=== PATIENT | female | born 1990 ===

== ENCOUNTER 2017-04-02 12:15 | Emergency (ER) | payer OTHER ==
[2017-04-02 12:16] VITALS: BMI 25.4
[2017-04-02] MEDS ORDERED: Sodium Chloride 0.9% 1,000 ML IV ONE (13:10)
[2017-04-02 13:19] LABS: RBC URINE 2 /hpf (0-3); URINE BACTERIA RARE (<OCC); URINE BILIRUBIN NEGATIVE (NEGATIVE); URINE BLOOD NEGATIVE (NEGATIVE); URINE COLOR Yellow (YELLOW); URINE GLUCOSE (UA) NORMAL (Normal); URINE KETONE NEGATIVE (NEGATIVE); URINE LEUKOCYTE ESTERASE 2+ Leu/uL (Negative); URINE PROTEIN NEGATIVE (NEGATIVE); WBC URINE 6 /hpf (0-5)
[2017-04-02] MEDS ORDERED: Sodium Chloride 0.9% 1,000 ML ONE (13:21)
[2017-04-02 13:25] LABS: BASO # 0.1 K/uL (0.0-0.2); BASO % 1.1 % (0.0-2.0); EOS # 0.2 K/uL (0.0-0.7); EOS % 2.5 % (0.0-4.0); HEMATOCRIT 40.7 % (34.0-47.0); LYMPH # 2.6 K/uL (1.0-4.3); MEAN CELL VOLUME 90.8 fL (81.0-99.0); MEAN CORPUSCULAR HEMOGLOBIN 30.5 pg (27.0-31.0); MEAN CORPUSCULAR HGB CONC 33.6 g/dL (33.0-37.0); MEAN PLATELET VOLUME 9.4 fL (7.2-11.7); MONO # 0.5 K/uL (0.0-0.8); MONO % 6.1 % (0.0-10.0); RED CELL DISTRIBUTION WIDTH 12.6 % (11.5-14.5); WHITE BLOOD COUNT 8.9 K/uL (4.8-10.8)
[2017-04-02 13:31] LABS: CHLORIDE 98 mmol/L (98-107)
[2017-04-02 13:32] LABS: POTASSIUM 3.6 mmol/L (3.6-5.2); SODIUM 133 mmol/L (132-148)
[2017-04-02 13:34] LABS: GFR AFRICAN-AMERICAN > 60
[2017-04-02 13:35] LABS: ALB/GLOB RATIO 1.3 (1.0-2.1); ALKALINE PHOSPHATASE 44 U/L (38-126); ALT/SGPT 35 U/L (9-52); AST/SGOT 20 U/L (14-36); BILIRUBIN,TOTAL 0.8 mg/dL (0.2-1.3); BLOOD UREA NITROGEN 10 mg/dL (7-17); CALCIUM 8.7 mg/dl (8.6-10.4); CARBON DIOXIDE 26 mmol/L (22-30); GLUCOSE,RANDOM 80 mg/dL (65-105); TOTAL PROTEIN 7.5 g/dL (6.3-8.3)
--- NOTE | 2017-04-02 13:56 | C.PDOC ---
History Of Present Illness 26-year-old female, presents to the emergency department with complaints of abdominal pain. Patient states she has been experiencing periumbilical abdominal pain that started this morning. Pain is associated with nausea, intermittent in nature, and radiates to left-lower quadrant. Patient denies vomiting, fevers, chills, back pain, dizziness, symptoms, or any other associated symptoms. No other complaints at this time. Time Seen by Provider: 04/02/17 12:41 Chief Complaint (Nursing): Abdominal Pain History Per: Patient History/Exam Limitations: no limitations Onset/Duration Of Symptoms: Hrs Current Symptoms Are (Timing): Still Present Severity: Moderate Location Of Pain/Discomfort: LLQ, Suprapubic Associated Symptoms: Nausea Past Medical History Reviewed: Historical Data, Nursing Documentation, Vital Signs Vital Signs: Last Vital Signs Temp 98.6 F 04/02/17 13:58 Pulse 72 04/02/17 13:58 Resp 16 04/02/17 13:58 BP 102/68 04/02/17 13:58 Pulse Ox 100 04/02/17 15:13 - Medical History PMH: Anxiety, Depression, Sexually Transmitted Disease (oral herpes) Denies: Diabetes, Hepatitis, HIV, HTN, Chronic Kidney Disease, Seizures - [facility] Procedures INJECT/INFUSE ELECTROLYT (05/18/15) INJECT/INFUSE NEC (08/11/15) Family History: States: Unknown Family Hx - Social History Hx Alcohol Use: Yes Hx Substance Use: No - Immunization History Hx Tetanus Toxoid Vaccination: No Hx Influenza Vaccination: No Hx Pneumococcal Vaccination: No Review Of Systems Except As Marked, All Systems Reviewed And Found Negative. Constitutional: Negative for: Fever Cardiovascular: Negative for: Chest Pain Gastrointestinal: Positive for: Nausea, Abdominal Pain. Negative for: Vomiting , Diarrhea Genitourinary: Negative for: Vaginal Discharge, Vaginal Bleeding Musculoskeletal: Negative for: Back Pain Physical Exam - Physical Exam Appears: Non-toxic, No Acute Distress Skin: Warm, Dry, No Rash Head: Atraumatic, Normacephalic Eye(s): bilateral: Normal Inspection, PERRL Nose: Normal Oral Mucosa: Moist Lips: Normal Appearing Neck: Normal ROM Chest: Symmetrical Cardiovascular: Rhythm Regular Respiratory: Normal Breath Sounds, No Accessory Muscle Use Gastrointestinal/Abdominal: Soft, Tenderness (LLQ tenderness), No Distention, No Guarding, No Rebound Back: No CVA Tenderness Pelvic: Vaginal Discharge (mild, white), No Cervical Motion Tenderness Extremity: Normal ROM Neurological/Psych: Oriented x3, Normal Speech ED Course And Treatment - Laboratory Results Result Diagrams: 04/02/17 13:19 04/02/17 13:19 O2 Sat by Pulse Oximetry: 100 Medical Decision Making Medical Decision Making: Plan: * CMP, Lipase * CBC * IVF, Toradol, Zofran * Urinalysis/Urine Preg * Reassess and Disposition Progress: Patient is resting comfortably, abdomen remains soft, and patient is tolerating PO. Labs are WNL. Patient feels comfortable going home. She will be discharged for outpatient follow-up with PMD, asked to return if symptoms persist or worsen. All questions answered. Disposition Counseled Patient/Family Regarding: Diagnosis, Need For Followup, Rx Given - Disposition Referrals: [facility] [Outside] Disposition: HOME/ ROUTINE Disposition Time: 15:36 Condition: STABLE Additional Instructions: Take meds as directed Return to ER if fever, vomiting, or worse Instructions: Urinary Tract Infection in Women (ED) - Clinical Impression Clinical Impression: Urinary tract infection - Scribe Statement The provider has reviewed the documentation as recorded by the Scribyves Oropeza All medical record entries made by the Scribe were at my direction and personally dictated by me. I have reviewed the chart and agree that the record accurately reflects my personal performance of the history, physical exam, medical decision making, and the department course for this patient. I have also personally directed, reviewed, and agree with the discharge instructions and disposition.
[2017-04-02 13:59] VITALS: RESP 16; TEMP 98.6
[2017-04-02 15:49] VITALS: BP 110/60; PULSE 68; O2SAT 98
== END 2017-04-02 15:56 | disposition home or self-care (01) ==
LOC: C.ER 12:15
DX: N39.0 Urinary tract infection, site not specified (principal)
CPT/HCPCS: 80053; 81001; 83690; 84703; 85025; 96374; 96375; 99285; J1885; J2405; J7040

== ENCOUNTER 2017-04-05 06:10 | Inpatient (IN) | payer OTHER ==
[2017-04-05] MEDS ORDERED: Sodium Chloride 0.9% 1,000 ML IV ONE (06:25)
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
[2017-04-05 06:28] VITALS: BMI 26.2
[2017-04-05 06:43] LABS: BASO # 0.1 K/uL (0.0-0.2); BASO % 1.3 % (0.0-2.0); EOS # 0.2 K/uL (0.0-0.7); EOS % 3.5 % (0.0-4.0); LYMPH # 1.5 K/uL (1.0-4.3); LYMPH % 24.2 % (20.0-40.0); MEAN CELL VOLUME 90.2 fL (81.0-99.0); MEAN CORPUSCULAR HEMOGLOBIN 30.7 pg (27.0-31.0); MEAN PLATELET VOLUME 9.4 fL (7.2-11.7); MONO # 0.3 K/uL (0.0-0.8); MONO % 4.6 % (0.0-10.0); NRBC % 0.1 % (0.0-2.0); RED CELL DISTRIBUTION WIDTH 12.8 % (11.5-14.5); WHITE BLOOD COUNT 6.2 K/uL (4.8-10.8)
[2017-04-05 07:01] LABS: CHLORIDE 102 mmol/L (98-107)
[2017-04-05 07:02] LABS: POTASSIUM 3.8 mmol/L (3.6-5.2); SODIUM 136 mmol/L (132-148)
[2017-04-05 07:04] LABS: ALB/GLOB RATIO 1.4 (1.0-2.1); ALKALINE PHOSPHATASE 43 U/L (38-126); AST/SGOT 19 U/L (14-36); BILIRUBIN,TOTAL 1.3 mg/dL (0.2-1.3); CARBON DIOXIDE 22 mmol/L (22-30); GFR AFRICAN-AMERICAN > 60
[2017-04-05 07:05] LABS: ALCOHOL SERUM < 10 mg/dl (0-10); ALT/SGPT 33 U/L (9-52); BLOOD UREA NITROGEN 8 mg/dL (7-17); CALCIUM 8.3 mg/dl (8.6-10.4); GLUCOSE,RANDOM 92 mg/dL (65-105)
--- NOTE | 2017-04-05 08:30 | RAD ---
PROCEDURE: CHEST RADIOGRAPH, 1 VIEW HISTORY: Overdosed COMPARISON: 03/07/2016 FINDINGS: LUNGS: Clear. PLEURA: No pneumothorax or pleural fluid seen. CARDIOVASCULAR: Normal. OSSEOUS STRUCTURES: No significant abnormalities. VISUALIZED UPPER ABDOMEN: Normal. OTHER FINDINGS: None. IMPRESSION: No active disease.
[2017-04-05 08:51] LABS: RBC URINE 8 /hpf (0-3); URINE BACTERIA RARE (<OCC); URINE BILIRUBIN NEGATIVE (NEGATIVE); URINE BLOOD NEGATIVE (NEGATIVE); URINE COLOR Yellow (YELLOW); URINE GLUCOSE (UA) NORMAL (Normal); URINE KETONE TRACE mg/dL (NEGATIVE); URINE LEUKOCYTE ESTERASE 3+ Leu/uL (Negative); URINE PROTEIN NEGATIVE (NEGATIVE); URINE UROBILINOGEN NORMAL mg/dL (0.2-1.0); WBC URINE 22 /hpf (0-5)
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
--- NOTE | 2017-04-06 15:06 | CARD ---
APPROVED REPORT EKG Measurement Heart [id number] <Conclusion> Sinus bradycardia with sinus arrhythmia Otherwise normal ECG
[2017-04-06] MEDS ORDERED: Multiple Vitamins Tab ONE (17:07)
--- NOTE | 2017-04-06 22:29 | PCM.PYCHPN ---
Psychiatric Progress Note - Psychiatric Progress Note Patient seen today, length of contact: 24 min Patient Chief Complaint: "I don't feel well" Problems Identified/Issues Discussed: She is seen, chart reviewed and case discussed. She is tearful at times, very anxious and sad but denies any suicide plan. We held a meeting with her boyfriend. He is older than him, AA, has 2 children and a GF but calls her "fiance" which "shocked" the patient as she was under the impression that it was an old girlfriend he was still in touch. He plainly said that he was NOT decided who to go with as the pt "scared" him many times. It turns out that the pt gets dissociative episodes and goes into the personality of a 17 year-old woman and acts like that "for hours and one time the whole day." She even went to work like that one day. She also has "anger outbursts" and mood swings. 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 On the positive side, they both agreed to work through couples counseling while she is also receiving indiv tx and med management. [facility] or someone from her insurance will be contacted by the [facility] Medication Change: Yes (lexapro started) Medical Record Reviewed: Yes Mental Status Examination - Cognitive Function Orientation: Person, Place, Situation, Time Memory: Intact Attention: Poor Concentration: Poor Association: WNL Fund of Knowledge: WNL - Mood Mood: Depressed, Anxious - Affect Affect: Constricted - Speech Speech: Appropriate - Formal Thought Process Formal Thought Process: No Impairment - Suicidal Ideation Suicidal Ideation: Yes Plan: SI comes and goes but no plans - Homicidal Ideation Homicidal Ideation: No Goal/Treatment Plan - Goal/Treatment Plan Need for Continued Stay: Discharge may exacerbated symptoms, Severe functional impairment Progress Toward Problem(s) and Goals/Treatment Plan: lexapro 5 mg will slowly increase to 20 mg Psychoed given prn meds Close observation Support and CBT EKG ordered for medical clearance Estimated Date of D/C: 04/10/17
[2017-04-07] MEDS: Multiple Vitamins Tab PO SCH (10:28)
--- NOTE | 2017-04-07 15:15 | PCM.PYCHPN ---
Psychiatric Progress Note - Psychiatric Progress Note Patient seen today, length of contact: 15 min Patient Chief Complaint: "A little better" Problems Identified/Issues Discussed: Seen with team, chart reviewed and case discussed. She is still sad and worried. Spoke to again. He is not yet decided on which woman he will stay with. She is happy that he is now at least more open but worried about losing him. Her multiple personality symptoms scared him but she says she was "working on that." No side-effects from Lexapro 5 mg so far, dose is increased to 10 mg. Not acutely suicidal now but has ongoing risk due to ongoing stress and recent significant attempt (many pills and suicide letter) If she keeps improving she will be discharged this Monday, as she wants to start job this Monday. Support given Medication Change: Yes (increase lexapro to 10 mg) Medical Record Reviewed: Yes Mental Status Examination - Cognitive Function Orientation: Person, Place, Situation, Time Memory: Intact Attention: Poor Concentration: Poor Association: WNL Fund of Knowledge: WNL - Mood Mood: Depressed, Anxious - Affect Affect: Constricted - Speech Speech: Appropriate - Formal Thought Process Formal Thought Process: No Impairment - Suicidal Ideation Suicidal Ideation: No - Homicidal Ideation Homicidal Ideation: No Goal/Treatment Plan - Goal/Treatment Plan Need for Continued Stay: Discharge may exacerbated symptoms, Severe functional impairment Progress Toward Problem(s) and Goals/Treatment Plan: lexapro 10 mg prn meds Close observation Support and CBT daily After care: [facility] for couples counseling and indiv therapy (and meds) Estimated Date of D/C: 04/09/17
[2017-04-08 08:05] VITALS: O2SAT 99
[2017-04-08] MEDS: Multiple Vitamins Tab PO SCH (09:27)
[2017-04-09 08:10] VITALS: BP 116/73; PULSE 86; RESP 20; TEMP 98.2
[2017-04-09] MEDS: Multiple Vitamins Tab PO SCH (09:11)
--- NOTE | 2017-04-11 23:09 | PCM.PYCHPN ---
Psychiatric Progress Note - Psychiatric Progress Note Patient seen today, length of contact: 16 min Patient Chief Complaint: the arguements with my family were getting to me. Problems Identified/Issues Discussed: symptom manage adherence to meds and treatment for depression Medical Problems: nothing acute Diagnostic Results: reviewed DSM 5 Symptoms Update: insomnika difficulty concentrating Medication Change: No Medical Record Reviewed: Yes Mental Status Examination - Cognitive Function Orientation: Person, Place, Situation, Time Memory: Intact Attention: WNL Concentration: Poor Association: WNL Fund of Knowledge: WNL - Mood Mood: Depressed, Anxious - Affect Affect: Constricted - Speech Speech: Appropriate - Formal Thought Process Formal Thought Process: No Impairment - Suicidal Ideation Suicidal Ideation: No - Homicidal Ideation Homicidal Ideation: No Goal/Treatment Plan - Goal/Treatment Plan Need for Continued Stay: Remain at risks for inpatient hospitalization, Discharge may exacerbated symptoms, Severe functional impairment Progress Toward Problem(s) and Goals/Treatment Plan: pt is attending groups, attending to adls no longer suicidal Estimated Date of D/C: 04/10/17 - Smoking Cessation Smoking Cessation Initiated: No
--- NOTE | 2017-04-11 23:16 | PCM.PYCHPN ---
Psychiatric Progress Note - Psychiatric Progress Note Patient seen today, length of contact: 16 min Patient Chief Complaint: i want to be discharged today Problems Identified/Issues Discussed: after care if leaves without having made appointments pt states she can call crc herself to make an appoint ment Medical Problems: nothing acute Diagnostic Results: reviewed DSM 5 Symptoms Update: still some trouble sleeping and staying asleep Medication Change: No Medical Record Reviewed: Yes Mental Status Examination - Cognitive Function Orientation: Person, Situation, Time Memory: Intact Concentration: WNL Association: WNL Fund of Knowledge: WNL - Mood Mood: Neutral - Affect Affect: Constricted - Speech Speech: Appropriate - Formal Thought Process Formal Thought Process: No Impairment - Suicidal Ideation Suicidal Ideation: No - Homicidal Ideation Homicidal Ideation: No Goal/Treatment Plan - Goal/Treatment Plan Progress Toward Problem(s) and Goals/Treatment Plan: looking towards future wants to go back to work at [employer] Estimated Date of D/C: 04/10/17 - Smoking Cessation Smoking Cessation Initiated: No
--- NOTE | 2017-04-12 13:15 | CARD ---
APPROVED REPORT EKG Measurement Heart [id number] <Conclusion> Normal sinus rhythm with sinus arrhythmia Normal ECG
== END 2017-04-09 14:50 | disposition home or self-care (01) | DRG 885 ==
LOC: SUPCPDRO 06:10 → C.ER 06:10 → C.5E 09:41
PROVIDERS: ADMIT Psychiatry & Neurology Psychiatry; ATTEND Psychiatry & Neurology Psychiatry
PROC: GZ3ZZZZ Medication Management (ICD-10-PCS; principal; 2017-04-05)
PROC: GZ56ZZZ Individual Psychotherapy, Supportive (ICD-10-PCS; 2017-04-05)
DX: F32.2 Major depressive disorder, single episode, severe without psychotic features (principal); T43.212A Poisoning by selective serotonin and norepinephrine reuptake inhibitors, intentional self-harm, initial encounter; F44.81 Dissociative identity disorder; F60.3 Borderline personality disorder; F43.10 Post-traumatic stress disorder, unspecified; Y92.009 Unspecified place in unspecified non-institutional (private) residence as the place of occurrence of the external cause

== ENCOUNTER 2017-10-17 13:28 | Emergency (ER) | payer OTHER ==
[2017-10-17 13:28] VITALS: BMI 26.2
[2017-10-17 13:52] VITALS: RESP 18
--- NOTE | 2017-10-17 14:23 | RAD ---
HISTORY: COMPARISON: 04/05/2017. TECHNIQUE: Chest PA and lateral FINDINGS: LINES AND TUBES: None. LUNG AND PLEURA: There is mild pulmonary hyperinflation and peribronchial cuffing with streaky opacities in the lungs. No focal consolidation. HEART AND MEDIASTINUM: The heart is not enlarged. The hilar and mediastinal contours are within normal limits. SKELETAL STRUCTURES: The bony structures are within normal limits for the patient's age. VISUALIZED UPPER ABDOMEN: Normal. OTHER FINDINGS: None. IMPRESSION: Findings are most compatible with reactive small airway disease/viral bronchitis/atypical pneumonitis. No lobar pneumonia.
--- NOTE | 2017-10-17 14:31 | C.PDOC ---
History Of Present Illness 27 yr old female presents to the ER with complaints of sore throat and cough for the past 3 days. Patient denies history of asthma, smoking, fever, chest pain, SOB, DENTON, nausea, vomiting, weakness or numbness. SORE THROAT, COUGH X 3 DAYS. NO FEVER HO ASTHMA, SMOKING. NO SOB, DENTON, CP EXAM MILD DIST NONTOXIC HEENT +ERYTHEMA PHARYNGEAL NO LESIONS, EXUDATE. NO SWELL, UVULA MIDLINE LUNGS CTA B/L OCC RHONCHI CENTRAL SPEAKING FULL SENTENCES REMAINDER NEG Time Seen by Provider: 10/17/17 13:57 Chief Complaint (Nursing): Flu-like Symptoms History Per: Patient History/Exam Limitations: no limitations Onset/Duration Of Symptoms: Days (3) Current Symptoms Are (Timing): Still Present Sick Contacts (Context): None Past Medical History Reviewed: Historical Data, Nursing Documentation, Vital Signs Vital Signs: Last Vital Signs Temp 98.7 F 10/17/17 13:49 Pulse 75 10/17/17 13:49 Resp 18 10/17/17 13:49 BP 120/81 10/17/17 13:49 Pulse Ox 98 10/17/17 14:33 - Medical History PMH: Anxiety, Depression, Sexually Transmitted Disease (oral herpes) - [facility] Procedures INDIVIDUAL PSYCHOTHERAPY, SUPPORTIVE (04/05/17) INJECT/INFUSE ELECTROLYT (05/18/15) INJECT/INFUSE NEC (08/11/15) MEDICATION MANAGEMENT (04/05/17) Family History: States: No Known Family Hx - Social History Hx Alcohol Use: No Hx Substance Use: No - Immunization History Hx Tetanus Toxoid Vaccination: No Hx Influenza Vaccination: No Hx Pneumococcal Vaccination: No Review Of Systems Except As Marked, All Systems Reviewed And Found Negative. Constitutional: Negative for: Fever ENT: Positive for: Throat Pain (Sore throat) Cardiovascular: Negative for: Chest Pain Respiratory: Positive for: Cough. Negative for: Shortness of Breath Gastrointestinal: Negative for: Nausea, Vomiting Neurological: Negative for: Weakness, Numbness Physical Exam - Physical Exam Appears: Non-toxic, In Acute Distress (Mild) Skin: Warm, Dry, No Rash Head: Atraumatic, Normacephalic Ear(s): Bilateral: Normal Oral Mucosa: Moist Throat: Erythema (Pharyngeal), No Exudate, Other (No lesions. No swelling. Uvula midline.) Neck: Normal, Normal ROM, Supple Respiratory: No Rales, Rhonchi (Occasional central rhonchi), No Stridor Extremity: Normal ROM, No Swelling Neurological/Psych: Oriented x3, Normal Speech, Normal Motor ED Course And Treatment O2 Sat by Pulse Oximetry: 98 (RA) Pulse Ox Interpretation: Normal - Radiology CXR: Interpreted by Me, Viewed By Me CXR Interpretation: Yes: No Acute Disease Medical Decision Making Medical Decision Making: PLAN: * CXR Disposition Counseled Patient/Family Regarding: Studies Performed, Diagnosis, Need For Followup, Rx Given - Disposition Referrals: [facility] [Outside] [facility] [Outside] Disposition: HOME/ ROUTINE Disposition Time: 14:31 Condition: GOOD Prescriptions: Azithromycin 250 mg PO DAILY #6 tab Benzonatate [Tessalon Perles] 200 mg PO TID PRN #15 sgl PRN Reason: Cough Instructions: Acute Bronchitis (ED) Forms: [facility] (Kittitian), Work Excuse - Clinical Impression Clinical Impression: Bronchitis - Scribe Statement The provider has reviewed the documentation as recorded by the Rocioibe Samira Leggett Provider Attestation: All medical record entries made by the Scribe were at my direction and personally dictated by me. I have reviewed the chart and agree that the record accurately reflects my personal performance of the history, physical exam, medical decision making, and the department course for this patient. I have also personally directed, reviewed, and agree with the discharge instructions and disposition.
[2017-10-17 15:00] VITALS: BP 124/72; PULSE 72; TEMP 98.2; O2SAT 99
== END 2017-10-17 15:11 | disposition home or self-care (01) ==
LOC: C.ER 13:28
DX: J40 Bronchitis, not specified as acute or chronic (principal)

== ENCOUNTER 2018-02-26 16:54 | Emergency (ER) | payer OTHER ==
[2018-02-26 16:54] VITALS: BMI 26.2
[2018-02-26 18:00] VITALS: BP 123/81; PULSE 75; RESP 18; TEMP 98.1; O2SAT 100
[2018-02-26 18:50] LABS: SQUAMOUS EPITHIAL 3 /hpf (0-5); URINE BACTERIA FEW (<OCC); URINE BILIRUBIN NEGATIVE (NEGATIVE); URINE CLARITY Hazy (Clear); URINE COLOR Amber (YELLOW); URINE GLUCOSE (UA) NORMAL (Normal); URINE PROTEIN 1+ mg/dL (NEGATIVE)
[2018-02-26 18:51] LABS: URINE BLOOD TRACE (NEGATIVE); URINE LEUKOCYTE ESTERASE 1+ Leu/uL (Negative)
--- NOTE | 2018-02-26 19:05 | C.PDOC ---
History Of Present Illness 27 year old female presents to the ED c/o suprapubic pain associated with dysuria, urinary frequency that started yesterday at 03:00. Patient reports she took 1 leftover tablet of antibiotics she had. Patient denies fever, chills, nausea, vomit, diarrhea, vaginal bleeding, vaginal d/c. Time Seen by Provider: 02/26/18 18:22 Chief Complaint (Nursing): Female Genitourinary History Per: Patient History/Exam Limitations: no limitations Onset/Duration Of Symptoms: Days Current Symptoms Are (Timing): Still Present Quality Of Discomfort: Burning Associated Symptoms: Urinary Symptoms Recent travel outside of the [place]: No Additional History Per: Patient Abnormal Vaginal Bleeding: No Past Medical History Reviewed: Historical Data, Nursing Documentation, Vital Signs Vital Signs: Last Vital Signs Temp 98.1 F 02/26/18 17:57 Pulse 75 02/26/18 17:57 Resp 18 02/26/18 17:57 BP 123/81 02/26/18 17:57 Pulse Ox 100 02/26/18 19:12 - Medical History PMH: Anxiety, Depression, Sexually Transmitted Disease (oral herpes) Denies: Diabetes, Hepatitis, HIV, HTN, Chronic Kidney Disease, Seizures Surgical History: No Surg Hx - [facility] Procedures INDIVIDUAL PSYCHOTHERAPY, SUPPORTIVE (04/05/17) INJECT/INFUSE ELECTROLYT (05/18/15) INJECT/INFUSE NEC (08/11/15) MEDICATION MANAGEMENT (04/05/17) Family History: States: Unknown Family Hx - Social History Hx Alcohol Use: Yes Hx Substance Use: No - Immunization History Hx Tetanus Toxoid Vaccination: No Hx Influenza Vaccination: No Hx Pneumococcal Vaccination: No Review Of Systems Constitutional: Negative for: Fever, Chills Cardiovascular: Negative for: Chest Pain Respiratory: Negative for: Shortness of Breath Gastrointestinal: Positive for: Abdominal Pain Genitourinary: Positive for: Dysuria, Frequency. Negative for: Vaginal Discharge, Vaginal Bleeding Musculoskeletal: Negative for: Back Pain Skin: Negative for: Rash Physical Exam - Physical Exam Appears: Non-toxic, No Acute Distress Skin: Normal Color, Warm, Dry Head: Atraumatic, Normacephalic Eye(s): bilateral: Normal Inspection ED Course And Treatment O2 Sat by Pulse Oximetry: 100 Disposition - Disposition Referrals: [facility] [Outside] Disposition: HOME/ ROUTINE Disposition Time: 19:11 Condition: GOOD Additional Instructions: Drink increased fluids. Take antibiotics until completed. Tylenol or Motrin for pain. Follow up in medical clinic and with traffic controller cable for annual exam and pap smear. Prescriptions: Ciprofloxacin [Cipro] 500 mg PO BID #10 tab Instructions: Urinary Tract Infection, Adult (DC) Forms: [facility] (Tajik), General Discharge Instructions - Clinical Impression Clinical Impression: Urinary tract infection
== END 2018-02-26 19:24 | disposition home or self-care (01) ==
LOC: C.ER 16:54
DX: N39.0 Urinary tract infection, site not specified (principal)

== ENCOUNTER 2018-03-21 08:47 | Emergency (ER) | payer BC, OTHER ==
[2018-03-21 08:47] VITALS: BMI 26.2
[2018-03-21 08:53] VITALS: RESP 18
--- NOTE | 2018-03-21 09:39 | C.PDOC ---
History Of Present Illness 27 y/o female presents to the ED for evaluation following near syncopal episode. Patient states she stood up quickly from her bed and felt near syncopal. There was no LOC. She reports history of similar episodes in the past with no identified cause for syncopal episodes. Patient also believes she twisted her left ankle in the process. Otherwise she denies any head trauma, numbness, weakness, or other injury. She has no dizziness at present. Time Seen by Provider: 03/21/18 09:35 Chief Complaint (Nursing): Syncope History Per: Patient History/Exam Limitations: no limitations Onset/Duration Of Symptoms: Mins Current Symptoms Are (Timing): Gone Past Medical History Reviewed: Historical Data, Nursing Documentation, Vital Signs Vital Signs: Last Vital Signs Temp 98.6 F 03/21/18 10:01 Pulse 58 L 03/21/18 10:01 Resp 18 03/21/18 10:01 BP 116/77 03/21/18 10:01 Pulse Ox 97 03/21/18 11:38 - Medical History PMH: Anxiety, Depression, Sexually Transmitted Disease (oral herpes) Denies: Diabetes, Hepatitis, HIV, HTN, Chronic Kidney Disease, Seizures - [facility] Procedures INDIVIDUAL PSYCHOTHERAPY, SUPPORTIVE (04/05/17) INJECT/INFUSE ELECTROLYT (05/18/15) INJECT/INFUSE NEC (08/11/15) MEDICATION MANAGEMENT (04/05/17) Family History: States: Unknown Family Hx - Social History Hx Alcohol Use: Yes Hx Substance Use: No - Immunization History Hx Tetanus Toxoid Vaccination: No Hx Influenza Vaccination: No Hx Pneumococcal Vaccination: No Review Of Systems Except As Marked, All Systems Reviewed And Found Negative. Eyes: Negative for: Vision Change Musculoskeletal: Positive for: Foot Pain (left ankle pain). Negative for: Neck Pain, Back Pain Skin: Negative for: Lesions Neurological: Positive for: Other (near syncopal episode, now resolved). Negative for: Weakness, Numbness, Confusion, Headache, Dizziness Physical Exam - Physical Exam Appears: Non-toxic, No Acute Distress Skin: Normal Color, Warm, Dry Head: Atraumatic, Normacephalic Eye(s): bilateral: Normal Inspection, PERRL, EOMI Nose: Normal Oral Mucosa: Moist Neck: Normal ROM, Supple Chest: Symmetrical Cardiovascular: Rhythm Regular, No Murmur Respiratory: Normal Breath Sounds, No Accessory Muscle Use Gastrointestinal/Abdominal: Soft, No Tenderness, No Distention Extremity: Bilateral: Atraumatic (with no swelling or tenderness to left ankle) , Normal Color And Temperature, Normal ROM Neurological/Psych: Oriented x3, Normal Speech, Normal Cranial Nerves, Normal Motor, Normal Sensation, No Other (focal deficits) Gait: Steady ED Course And Treatment O2 Sat by Pulse Oximetry: 97 Medical Decision Making Medical Decision Making: Impression: brief vasovagal syncope, mild L ankld sprain no acute injuries wants to go to work today Stable for d/c home Disposition Doctor Will See Patient In The: Office Counseled Patient/Family Regarding: Studies Performed, Diagnosis - Disposition Referrals: [facility] [Outside] [facility] [Outside] Disposition: HOME/ ROUTINE Disposition Time: 09:39 Condition: GOOD Additional Instructions: ice packs to the ankle motrin as needed follow-up in our outpatient Clinic as needed. Instructions: Syncope (Fainting), Ankle Sprain Forms: [facility] (Syriac), Work Excuse - POA Present On Arrival: None - Clinical Impression Clinical Impression: Near syncope, Ankle sprain - Scribe Statement The provider has reviewed the documentation as recorded by the Scribe (Shayna Schmidt) Provider Attestation: All medical record entries made by the Scribe were at my direction and personally dictated by me. I have reviewed the chart and agree that the record accurately reflects my personal performance of the history, physical exam, medical decision making, and the department course for this patient. I have also personally directed, reviewed, and agree with the discharge instructions and disposition.
[2018-03-21 10:04] VITALS: BP 116/77; PULSE 58; TEMP 98.6
[2018-03-21 11:36] VITALS: O2SAT 97
== END 2018-03-21 10:06 | disposition home or self-care (01) ==
LOC: C.ER 08:47
DX: R55 Syncope and collapse (principal); S93.402A Sprain of unspecified ligament of left ankle, initial encounter; X50.1XXA Overexertion from prolonged static or awkward postures, initial encounter; Y92.003 Bedroom of unspecified non-institutional (private) residence as the place of occurrence of the external cause

== ENCOUNTER 2018-04-03 17:50 | Emergency (ER) | payer OTHER ==
[2018-04-03 17:51] VITALS: BMI 26.2
[2018-04-03 18:11] VITALS: TEMP 98.5
[2018-04-03] MEDS ORDERED: Sodium Chloride 0.9% 1,000 ML IV ONE (18:22)
[2018-04-03] MEDS ORDERED: Sodium Chloride 0.9% 1,000 ML ONE (18:33)
[2018-04-03 18:41] LABS: BASO # 0.1 K/uL (0.0-0.2); BASO % 1.1 % (0.0-2.0); EOS # 0.3 K/uL (0.0-0.7); EOS % 2.6 % (0.0-4.0); HEMOGLOBIN 13.4 g/dL (11.0-16.0); LYMPH # 2.6 K/uL (1.0-4.3); LYMPH % 26.6 % (20.0-40.0); MEAN CELL VOLUME 89.8 fL (81.0-99.0); MEAN CORPUSCULAR HEMOGLOBIN 31.2 pg (27.0-31.0); MEAN CORPUSCULAR HGB CONC 34.7 g/dL (33.0-37.0); MEAN PLATELET VOLUME 8.6 fL (7.2-11.7); MONO # 0.5 K/uL (0.0-0.8); MONO % 5.2 % (0.0-10.0); NEUT # 6.4 K/uL (1.8-7.0); NEUT % 64.5 % (50.0-75.0); NRBC % 0.1 % (0.0-2.0); RBC 4.31 Mil/uL (3.80-5.20); RED CELL DISTRIBUTION WIDTH 12.9 % (11.5-14.5); WHITE BLOOD COUNT 9.9 K/uL (4.8-10.8)
[2018-04-03 18:43] LABS: HCG,QUALITATIVE URINE NEGATIVE (NEGATIVE)
[2018-04-03 18:46] LABS: SQUAMOUS EPITHIAL 3 /hpf (0-5); URINE BILIRUBIN NEGATIVE (NEGATIVE); URINE BLOOD NEGATIVE (NEGATIVE); URINE CLARITY Clear (Clear); URINE COLOR Yellow (YELLOW); URINE GLUCOSE (UA) NORMAL (Normal); URINE LEUKOCYTE ESTERASE NEG Leu/uL (Negative); URINE PROTEIN NEGATIVE (NEGATIVE); URINE UROBILINOGEN NORMAL mg/dL (0.2-1.0)
[2018-04-03 18:53] LABS: ALB/GLOB RATIO 1.2 (1.0-2.1); ALBUMIN 4.1 g/dL (3.5-5.0); ALT/SGPT 31 U/L (9-52); AST/SGOT 23 U/L (14-36); BLOOD UREA NITROGEN 11 mg/dL (7-17); GFR AFRICAN-AMERICAN > 60; GFR NON-AFRICAN AMERICAN > 60; LIPASE 43 U/L (23-300)
--- NOTE | 2018-04-03 18:57 | C.PDOC ---
History Of Present Illness 27yo female, no past medical history, presents to ER stating for the past 2 months, she has been feeling more tired than usual, is lacking energy and has had occasional epigastric abdominal pain. She denies any change in abdominal pain with food intake; patient does report she has been dieting but has lost a total of 1lbs. She also reports occasional bodyaches, back pain, ankle pain and generalized pain. She was talking to a friend and was informed her symptoms "sounded like lupus" and patient is concerned as she has a family history of lupus. She denies any other medical complaints. PMD: None, unable to recall last primary care evaluation Time Seen by Provider: 04/03/18 18:12 Chief Complaint (Nursing): Abdominal Pain History Per: Patient History/Exam Limitations: no limitations Current Symptoms Are (Timing): Still Present Additional History Per: Patient Past Medical History Reviewed: Historical Data, Nursing Documentation, Vital Signs Vital Signs: Last Vital Signs Temp 98.5 F 04/03/18 19:57 Pulse 84 04/03/18 19:57 Resp 18 04/03/18 19:57 BP 100/62 04/03/18 19:57 Pulse Ox 97 04/03/18 20:27 - Medical History PMH: Anxiety, Depression, Sexually Transmitted Disease (oral herpes) Denies: Diabetes, Hepatitis, HIV, HTN, Chronic Kidney Disease, Seizures Surgical History: No Surg Hx - [facility] Procedures INDIVIDUAL PSYCHOTHERAPY, SUPPORTIVE (04/05/17) INJECT/INFUSE ELECTROLYT (05/18/15) INJECT/INFUSE NEC (08/11/15) MEDICATION MANAGEMENT (04/05/17) Family History: States: Unknown Family Hx - Social History Hx Alcohol Use: Yes Hx Substance Use: No - Immunization History Hx Tetanus Toxoid Vaccination: No Hx Influenza Vaccination: No Hx Pneumococcal Vaccination: No Review Of Systems Except As Marked, All Systems Reviewed And Found Negative. Constitutional: Positive for: Weakness, Malaise. Negative for: Fever, Chills Gastrointestinal: Positive for: Abdominal Pain Musculoskeletal: Positive for: Back Pain, Other (non specific bodyaches) Physical Exam - Physical Exam Appears: Non-toxic, No Acute Distress Skin: Normal Color, Warm, Dry Head: Atraumatic, Normacephalic Eye(s): bilateral: Normal Inspection, PERRL, EOMI Neck: Supple Chest: Symmetrical Cardiovascular: Rhythm Regular Respiratory: Normal Breath Sounds Gastrointestinal/Abdominal: Normal Exam, Soft, No Tenderness Back: Normal Inspection Extremity: Normal ROM, No Tenderness, No Deformity, No Swelling Neurological/Psych: Oriented x3, Normal Speech Gait: Steady ED Course And Treatment - Laboratory Results Result Diagrams: 04/03/18 18:37 04/03/18 18:37 O2 Sat by Pulse Oximetry: 97 (RA) Pulse Ox Interpretation: Normal Medical Decision Making Medical Decision Making: Impression: Generalized discomfort, abdominal pain Plan: -- Labs -- IV FLuids Progress: Labs reviewed and within normal limits. Hemoglobin level is 13.4. Patient reports feeling better after IV hydration. Stable for discharge home. Disposition Counseled Patient/Family Regarding: Diagnosis, Need For Followup - Disposition Referrals: [facility] [Outside] [facility] [Outside] [email or web address] [Outside] Disposition: HOME/ ROUTINE Disposition Time: 19:23 Condition: GOOD Additional Instructions: Follow up with the clinic in 2-5 days for further evaluation. Return to the emergency department at any time if symptoms persist or worsen. You may call overhead worker service for any assistance [phone] Instructions: Fatigue (DC) Forms: [facility] (Venezuelan) - POA Present On Arrival: None - Clinical Impression Clinical Impression: Fatigue - PA / SUPERIOR COURT CLERK / Resident Statement MD/DO has reviewed & agrees with the documentation as recorded. - Scribe Statement The provider has reviewed the documentation as recorded by the Scribe (Brandee Coleman) Provider Attestation: All medical record entries made by the Scribe were at my direction and personally dictated by me. I have reviewed the chart and agree that the record accurately reflects my personal performance of the history, physical exam, medical decision making, and the department course for this patient. I have also personally directed, reviewed, and agree with the discharge instructions and disposition.
[2018-04-03 19:59] VITALS: BP 100/62; PULSE 84; RESP 18
[2018-04-03 20:19] VITALS: O2SAT 97
== END 2018-04-03 19:58 | disposition home or self-care (01) ==
LOC: C.ER 17:50
DX: R53.83 Other fatigue (principal)
CPT/HCPCS: 80053; 81001; 83690; 84703; 85025; 96360; 99285; J7040

== ENCOUNTER 2018-07-04 20:32 | Emergency (ER) | payer BC, OTHER ==
[2018-07-04 20:33] VITALS: BMI 26.2
[2018-07-04] MEDS ORDERED: Sodium Chloride 0.9% 1,000 ML IV ONE (21:58)
--- NOTE | 2018-07-04 22:00 | C.PDOC ---
History Of Present Illness 27 year old female presents to the ED c/o dizziness, nausea, abdominal pain. Patient states she got today, went to the mall and ate some [employer] after which she started feeling the symptoms. Patient denies fever, chills, vomit, diarrhea, weakness, numbness. Time Seen by Provider: 07/04/18 21:52 Chief Complaint (Nursing): Dizziness/Lightheaded History Per: Patient History/Exam Limitations: no limitations Onset/Duration Of Symptoms: Hrs Current Symptoms Are (Timing): Still Present Recent travel outside of the [place]: No Additional History Per: Patient Past Medical History Reviewed: Historical Data, Nursing Documentation, Vital Signs Vital Signs: Last Vital Signs Temp 98.4 F 07/04/18 20:39 Pulse 75 07/04/18 20:39 Resp 18 07/04/18 20:39 BP 126/85 07/04/18 20:39 Pulse Ox 99 07/04/18 22:04 - Medical History PMH: Anxiety, Depression, Sexually Transmitted Disease (oral herpes) Denies: Diabetes, Hepatitis, HIV, HTN, Chronic Kidney Disease, Seizures Surgical History: No Surg Hx - [facility] Procedures INDIVIDUAL PSYCHOTHERAPY, SUPPORTIVE (04/05/17) INJECT/INFUSE ELECTROLYT (05/18/15) INJECT/INFUSE NEC (08/11/15) MEDICATION MANAGEMENT (04/05/17) Family History: States: Unknown Family Hx - Social History Hx Alcohol Use: Yes Hx Substance Use: No - Immunization History Hx Tetanus Toxoid Vaccination: No Hx Influenza Vaccination: No Hx Pneumococcal Vaccination: No Review Of Systems Constitutional: Negative for: Fever, Chills Cardiovascular: Negative for: Chest Pain Respiratory: Negative for: Shortness of Breath Gastrointestinal: Positive for: Nausea, Abdominal Pain. Negative for: Vomiting , Diarrhea Skin: Negative for: Rash Neurological: Positive for: Dizziness. Negative for: Weakness, Numbness, Headache Physical Exam - Physical Exam Appears: Non-toxic, No Acute Distress Skin: Normal Color, Warm, Dry Head: Atraumatic, Normacephalic Eye(s): bilateral: Normal Inspection Oral Mucosa: Moist Neck: Normal ROM, Supple Chest: Symmetrical Cardiovascular: Rhythm Regular Respiratory: Normal Breath Sounds, No Rales, No Rhonchi, No Wheezing Gastrointestinal/Abdominal: Soft, Tenderness (diffuse abdominal ), No Guarding, No Rebound Extremity: Normal ROM, No Tenderness, No Swelling Neurological/Psych: Oriented x3, Normal Speech Gait: Steady ED Course And Treatment - Laboratory Results Result Diagrams: 07/04/18 22:09 07/04/18 22:09 Lab Interpretation: No Acute Changes ECG: Interpreted By Me ECG Rhythm: Sinus Rhythm ECG Interpretation: No Acute Changes O2 Sat by Pulse Oximetry: 99 (ON RA) Pulse Ox Interpretation: Normal Reevaluation Time: 22:58 Reassessment Condition: Improved (after IV fluids) Medical Decision Making Medical Decision Making: Plan: * EKG * Labs * IV fluids * UA Disposition Counseled Patient/Family Regarding: Studies Performed, Diagnosis, Need For Followup - Disposition Referrals: [facility] [Outside] Disposition: HOME/ ROUTINE Disposition Time: 23:00 Condition: IMPROVED Instructions: Dizziness, Nonvertigo, (DC) Forms: [facility] (Macedonian) - Clinical Impression Clinical Impression: Dizziness - Scribe Statement The provider has reviewed the documentation as recorded by the Scribe Rock Valenzuela All medical record entries made by the Scribe were at my direction and personally dictated by me. I have reviewed the chart and agree that the record accurately reflects my personal performance of the history, physical exam, medical decision making, and the department course for this patient. I have also personally directed, reviewed, and agree with the discharge instructions and disposition.
[2018-07-04 22:10] LABS: SQUAMOUS EPITHIAL 1 /hpf (0-5); URINE BACTERIA RARE (<OCC); URINE BILIRUBIN NEGATIVE (NEGATIVE); URINE BLOOD NEGATIVE (NEGATIVE); URINE CLARITY Hazy (Clear); URINE COLOR Straw (YELLOW); URINE GLUCOSE (UA) NORMAL (Normal); URINE LEUKOCYTE ESTERASE NEG Leu/uL (Negative); URINE PROTEIN NEGATIVE (NEGATIVE); URINE UROBILINOGEN NORMAL mg/dL (0.2-1.0)
[2018-07-04 22:13] LABS: BASO # 0.1 K/uL (0.0-0.2); BASO % 0.7 % (0.0-2.0); EOS # 0.1 K/uL (0.0-0.7); EOS % 1.5 % (0.0-4.0); HEMOGLOBIN 12.8 g/dL (11.0-16.0); LYMPH # 2.3 K/uL (1.0-4.3); LYMPH % 27.3 % (20.0-40.0); MEAN CELL VOLUME 87.6 fL (81.0-99.0); MEAN CORPUSCULAR HEMOGLOBIN 31.1 pg (27.0-31.0); MEAN CORPUSCULAR HGB CONC 35.5 g/dL (33.0-37.0); MEAN PLATELET VOLUME 8.6 fL (7.2-11.7); MONO # 0.4 K/uL (0.0-0.8); MONO % 4.9 % (0.0-10.0); NEUT # 5.6 K/uL (1.8-7.0); NEUT % 65.6 % (50.0-75.0); RBC 4.11 Mil/uL (3.80-5.20); RED CELL DISTRIBUTION WIDTH 12.9 % (11.5-14.5); WHITE BLOOD COUNT 8.6 K/uL (4.8-10.8)
[2018-07-04 22:26] LABS: ALB/GLOB RATIO 1.5 (1.0-2.1); ALBUMIN 4.2 g/dL (3.5-5.0); ALT/SGPT 37 U/L (9-52); AST/SGOT 20 U/L (14-36); BLOOD UREA NITROGEN 11 mg/dL (7-17); GFR AFRICAN-AMERICAN > 60; GFR NON-AFRICAN AMERICAN > 60
[2018-07-04 23:04] VITALS: BP 107/65; PULSE 63; RESP 17; TEMP 98.3; O2SAT 97
--- NOTE | 2018-07-05 11:07 | CARD ---
APPROVED REPORT Date of service: 07/04/2018 EKG Measurement Heart [id number] <Conclusion> Sinus rhythm with marked sinus arrhythmia Otherwise normal ECG
== END 2018-07-04 23:12 | disposition home or self-care (01) ==
LOC: C.ER 20:32
DX: R42 Dizziness and giddiness (principal)
CPT/HCPCS: 80053; 81001; 85025; 93005; 96374; 99285; J2405; J7030

== ENCOUNTER 2018-09-03 10:59 | Emergency (ER) | payer BC ==
[2018-09-03 10:59] VITALS: BMI 26.2
[2018-09-03 11:11] VITALS: O2SAT 99
[2018-09-03] MEDS ORDERED: Sodium Chloride 0.9% 1,000 ML IV ONE (11:25)
[2018-09-03] MEDS ORDERED: Sodium Chloride 0.9% 1,000 ML ONE (11:51)
[2018-09-03 12:24] LABS: BASO # 0.1 K/uL (0.0-0.2); BASO % 1.4 % (0.0-2.0); EOS # 0.2 K/uL (0.0-0.7); EOS % 3.6 % (0.0-4.0); HEMOGLOBIN 13.6 g/dL (11.0-16.0); LYMPH # 1.8 K/uL (1.0-4.3); LYMPH % 28.9 % (20.0-40.0); MEAN CELL VOLUME 88.7 fL (81.0-99.0); MEAN CORPUSCULAR HEMOGLOBIN 29.9 pg (27.0-31.0); MEAN CORPUSCULAR HGB CONC 33.7 g/dL (33.0-37.0); MONO # 0.3 K/uL (0.0-0.8); MONO % 5.6 % (0.0-10.0); NEUT # 3.7 K/uL (1.8-7.0); NEUT % 60.5 % (50.0-75.0); NRBC % 0.2 % (0.0-2.0); RBC 4.56 Mil/uL (3.80-5.20); WHITE BLOOD COUNT 6.1 K/uL (4.8-10.8)
[2018-09-03 12:32] LABS: SQUAMOUS EPITHIAL 7 /hpf (0-5); URINE BACTERIA RARE (<OCC); URINE BILIRUBIN NEGATIVE (NEGATIVE); URINE BLOOD 1+ (NEGATIVE); URINE CLARITY Clear (Clear); URINE COLOR Yellow (YELLOW); URINE GLUCOSE (UA) NORMAL (Normal); URINE LEUKOCYTE ESTERASE TRACE Leu/uL (Negative); URINE PROTEIN NEGATIVE (NEGATIVE); URINE UROBILINOGEN NORMAL mg/dL (0.2-1.0)
[2018-09-03 12:41] LABS: ALB/GLOB RATIO 1.2 (1.0-2.1); ALBUMIN 4.1 g/dL (3.5-5.0); ALT/SGPT 29 U/L (9-52); AST/SGOT 24 U/L (14-36); BLOOD UREA NITROGEN 8 mg/dL (7-17); CALCIUM 8.9 mg/dl (8.6-10.4); GFR NON-AFRICAN AMERICAN > 60; LIPASE 38 U/L (23-300)
--- NOTE | 2018-09-03 13:42 | C.PDOC ---
History Of Present Illness 31 year old female, whose PMHx includes Lupus, presents to the ED for evaluation of diffuse lower abdominal pain associated with nausea and multiple episodes of watery, non-bloody diarrhea for 1 week. Patient also reports having few episodes of vomiting " at beginning of sickness". Patient states she has been restricting her diet for the past few days without any improvement in her pain and diarrhea. Yesterday, patient had around 5-6 episodes of watery diarrhea. She states, "everything I eat goes right through me." Otherwise, patient denies fever, chills, dizziness, sore throat, chest pain, palpitations, back pain, UTI sympto ms. Ambulate to Ed for evaluation, not in any apparent distress. Time Seen by Provider: 09/03/18 11:21 Chief Complaint (Nursing): Abdominal Pain History Per: Patient History/Exam Limitations: no limitations Onset/Duration Of Symptoms: Other (1 week ) Quality Of Discomfort: "Pain" Associated Symptoms: Nausea, Vomiting, Diarrhea. denies: Fever, Chills, Back Pain, Urinary Symptoms Additional History Per: Patient Past Medical History Reviewed: Historical Data, Nursing Documentation, Vital Signs Vital Signs: Last Vital Signs Temp 98.9 F 09/03/18 11:07 Pulse 50 L 09/03/18 11:07 Resp 18 09/03/18 11:07 BP 109/76 09/03/18 11:07 Pulse Ox 99 09/03/18 11:07 - Medical History PMH: Anxiety, Depression, Sexually Transmitted Disease (oral herpes) Denies: Diabetes, Hepatitis, HIV, HTN, Chronic Kidney Disease, Seizures Surgical History: No Surg Hx - [facility] Procedures INDIVIDUAL PSYCHOTHERAPY, SUPPORTIVE (04/05/17) INJECT/INFUSE ELECTROLYT (05/18/15) INJECT/INFUSE NEC (08/11/15) MEDICATION MANAGEMENT (04/05/17) Family History: States: Unknown Family Hx - Social History Hx Alcohol Use: Yes Hx Substance Use: No - Immunization History Hx Tetanus Toxoid Vaccination: No Hx Influenza Vaccination: No Hx Pneumococcal Vaccination: No Review Of Systems Constitutional: Negative for: Fever, Chills Cardiovascular: Negative for: Chest Pain, Palpitations Gastrointestinal: Positive for: Nausea, Vomiting, Abdominal Pain, Diarrhea Genitourinary: Negative for: Dysuria, Frequency Musculoskeletal: Negative for: Back Pain Neurological: Negative for: Dizziness Physical Exam - Physical Exam Appears: Non-toxic, No Acute Distress Skin: Normal Color, Warm, Dry Head: Normacephalic Eye(s): bilateral: PERRL Nose: No Flaring Oral Mucosa: Moist, No Drooling Tongue: Normal Appearing Lips: Normal Appearing Throat: No Erythema, No Drooling Neck: Trachea Midline, Supple Chest: Symmetrical, No Deformity, No Tenderness Cardiovascular: Rhythm Regular, No Murmur, No JVD Respiratory: No Decreased Breath Sounds, No Accessory Muscle Use, No Rales, No Rhonchi, No Stridor, No Wheezing Gastrointestinal/Abdominal: Soft, Tenderness (mild, to left lower quadrant ), No Distention, No Guarding, No Rebound Back: No CVA Tenderness Extremity: Normal ROM, No Calf Tenderness, Capillary Refill (less than 2 seconds ), No Swelling Neurological/Psych: Oriented x3, Normal Speech, Normal Cognition ED Course And Treatment - Laboratory Results Result Diagrams: 09/03/18 12:15 09/03/18 12:15 Lab Interpretation: No Acute Changes Urine POC: Negative O2 Sat by Pulse Oximetry: 99 (on RA) Pulse Ox Interpretation: Normal - CT Scan/US CT A/P Other Rad Studies (CT/US): Radiology Report Reviewed CT/US Interpretation: Creator : Chani Flores. Dictator : Hamida Ramirez MD. Materials Buyer : Field Technical Specialist : Hamida Ramirez MD. Approver2 : Report Date : 09/03/2018 14:21:29. My Comment : . Date of service: 09/03/2018. PROCEDURE: CT Abdomen and Pelvis with contrast. HISTORY: LLQ pain. COMPARISON: None available. TECHNIQUE: Contrast dose: 100 mL Visipaque IV. Radiation dose: Total exam DLP = 878.07 mGy-cm. This CT exam was performed using one or more of the following dose reduction techniques: Automated exposure control, adjustment of the mA and/ or kV according to patient size, and/or use of iterative reconstruction technique. FINDINGS: LOWER THORAX: No visible consolidation, pleural effusion, or pneumothorax. LIVER: Unremarkable. GALLBLADDER AND BILE DUCTS: Unremarkable. PANCREAS: Unremarkable. SPLEEN: Unremarkable. ADRENALS: Unremarkable. KIDNEYS AND URETERS: The kidneys enhance symmetrically. No hydronephrosis or obstructing calculus identified. VASCULATURE: No aortic aneurysm. BOWEL: Stomach is nondistended. Lack of oral contrast limits evaluation for bowel pathology. Bowel loops appear within normal limits of caliber without evidence of obstruction. Diverticulosis without CT evidence of acute diverticulitis. Wall thickening of the left colon with mild adjacent fluid; correlate clinically for possibility of colitis. APPENDIX: The appendix appears within normal limits of caliber. No secondary signs of acute appendicitis. PERITONEUM: No significant free fluid. No definite free air. LYMPH NODES: No bulky adenopathy identified. BLADDER: Unremarkable. REPRODUCTIVE: Uterus is present. Probable bilateral cysts. BONES: No acute osseous abnormality is detected. OTHER FINDINGS: None. IMPRESSION: Diverticulosis without CT evidence of acute diverticulitis. Wall thickening of the left colon with mild adjacent fluid; correlate clinically for possibility of colitis. Probable bilateral ovarian cysts. Recommend pelvic ultrasound. Additional findings as above. Progress Note: Bloodwork, urinalysis, CT A/P ordered and reviewed. Pepcid IVP, Zofran IVP, Protonix IVP and IV Fluids given. Pt was OBS in ED for 4 hours and reports moderate improvmenet in sx. On re-eval, pt is afebrile, hemodynamicalys table. non-toxic. Tolerate Po well in ED. ENT: no acute findings. neck: Supple, (-) meningeal sign. Lungs: CTA B/L, BS equal B/L. Abd: benign, (-) guarding, (-) rebound, (-) RLQ tenderness. back: (-) CVA tenderness. Blood work review- normal, no acute leukocytosis. CMP, UA- no acute abnormalities. Preg (-). CT A/P review (+) diverticulosis without diverticulitis. Pt has clinical findings c/w V/D, r/o viral illness, diverticulosis. results review and discussed with pt, advised on course of ds. ref. to f/U with PMD, GI in 2-3 days for re-eavl. return to Ed if any worsening or new changes. Disposition Counseled Patient/Family Regarding: Studies Performed, Diagnosis, Need For Followup, Rx Given - Disposition Referrals: [facility] [Outside] Disposition: HOME/ ROUTINE Disposition Time: 15:07 Condition: STABLE Additional Instructions: Encourage fluids Diet restriction for 2-3 days, avoid milk, dairy Take medication as prescribed Follow up with PMD, GI in 2-3 days for re-evaluation. return to ED at any time if any worsening or new changes. Prescriptions: Ciprofloxacin [Cipro] 1 tab PO BID #14 tab metroNIDAZOLE [Flagyl] 500 mg PO BID #14 tab Ondansetron ODT [Zofran ODT] 1 odt PO BID PRN #6 odt PRN Reason: Nausea/Vomiting Instructions: Nausea and Vomiting, Adult, Diarrhea in Adolescents and Adults, Viral Gastroenteritis, Diverticulosis Forms: [employer] (Romanian) - Clinical Impression Clinical Impression: Diarrhea, Vomiting, Diverticulosis - PA / SEWER BUILDER / Resident Statement MD/DO has reviewed & agrees with the documentation as recorded. - Scribe Statement The provider has reviewed the documentation as recorded by the Scribe (Brandy Fernández) All medical record entries made by the Scribe were at my direction and personally dictated by me. I have reviewed the chart and agree that the record accurately reflects my personal performance of the history, physical exam, medical decision making, and the department course for this patient. I have also personally directed, reviewed, and agree with the discharge instructions and disposition.
[2018-09-03] MEDS ORDERED: Iodixanol 320 MG/ML 100 ML BOTTLE IV ONE (13:56)
[2018-09-03 14:37] VITALS: BP 115/76; PULSE 66; RESP 20; TEMP 98.7
--- NOTE | 2018-09-03 15:06 | CT ---
Date of service: 09/03/2018 PROCEDURE: CT Abdomen and Pelvis with contrast HISTORY: LLQ pain COMPARISON: None available. TECHNIQUE: Contrast dose: 100 mL Visipaque IV Radiation dose: Total exam DLP = 878.07 mGy-cm. This CT exam was performed using one or more of the following dose reduction techniques: Automated exposure control, adjustment of the mA and/or kV according to patient size, and/or use of iterative reconstruction technique. FINDINGS: LOWER THORAX: No visible consolidation, pleural effusion, or pneumothorax. LIVER: Unremarkable. GALLBLADDER AND BILE DUCTS: Unremarkable. PANCREAS: Unremarkable. SPLEEN: Unremarkable. ADRENALS: Unremarkable. KIDNEYS AND URETERS: The kidneys enhance symmetrically. No hydronephrosis or obstructing calculus identified. VASCULATURE: No aortic aneurysm. BOWEL: Stomach is nondistended. Lack of oral contrast limits evaluation for bowel pathology. Bowel loops appear within normal limits of caliber without evidence of obstruction. Diverticulosis without CT evidence of acute diverticulitis. Wall thickening of the left colon with mild adjacent fluid; correlate clinically for possibility of colitis. APPENDIX: The appendix appears within normal limits of caliber. No secondary signs of acute appendicitis. PERITONEUM: No significant free fluid. No definite free air. LYMPH NODES: No bulky adenopathy identified. BLADDER: Unremarkable. REPRODUCTIVE: Uterus is present. Probable bilateral cysts. BONES: No acute osseous abnormality is detected. OTHER FINDINGS: None. IMPRESSION: Diverticulosis without CT evidence of acute diverticulitis. Wall thickening of the left colon with mild adjacent fluid; correlate clinically for possibility of colitis. Probable bilateral ovarian cysts. Recommend pelvic ultrasound. Additional findings as above.
== END 2018-09-03 15:45 | disposition home or self-care (01) ==
LOC: C.ER 10:59
DX: R19.7 Diarrhea, unspecified (principal); R11.2 Nausea with vomiting, unspecified; K57.90 Diverticulosis of intestine, part unspecified, without perforation or abscess without bleeding; M32.9 Systemic lupus erythematosus, unspecified
CPT/HCPCS: 74177; 80053; 81001; 83690; 85025; 87086; 96361; 96374; 96375; 99283; C9113; J2405; J7030; Q9967

== ENCOUNTER 2018-10-28 00:59 | Emergency (ER) | payer SELFPAY ==
[2018-10-28 00:59] VITALS: BMI 26.2
[2018-10-28 01:14] VITALS: BP 121/79; PULSE 86; RESP 16; TEMP 98.2; O2SAT 96
--- NOTE | 2018-10-28 01:54 | C.PDOC ---
History Of Present Illness 28 year old female presents to the ED c/o pain and swelling to the vaginal area s/p shaving few days ago. Patient reports she was poking at the area with a needle and think its infected now. Patient denies fever, drainage, abdominal pain, nausea, vomit, dysuria, hematuria, vaginal bleeding, rash. Time Seen by Provider: 10/28/18 01:21 Chief Complaint (Nursing): Abnormal Skin Integrity History Per: Patient History/Exam Limitations: no limitations Onset/Duration Of Symptoms: Days Current Symptoms Are (Timing): Still Present Quality Of Symptoms: Painful, Swollen Recent travel outside of the [place]: No Additional History Per: Patient Past Medical History Reviewed: Historical Data, Nursing Documentation, Vital Signs Vital Signs: Last Vital Signs Temp 98.2 F 10/28/18 01:08 Pulse 86 10/28/18 01:08 Resp 16 10/28/18 01:08 BP 121/79 10/28/18 01:08 Pulse Ox 96 10/28/18 01:08 - Medical History PMH: Anxiety, Depression, Sexually Transmitted Disease (oral herpes) Denies: Diabetes, Hepatitis, HIV, HTN, Chronic Kidney Disease, Seizures Surgical History: No Surg Hx - [facility] Procedures INDIVIDUAL PSYCHOTHERAPY, SUPPORTIVE (04/05/17) INJECT/INFUSE ELECTROLYT (05/18/15) INJECT/INFUSE NEC (08/11/15) MEDICATION MANAGEMENT (04/05/17) Family History: States: Unknown Family Hx - Social History Hx Alcohol Use: Yes Hx Substance Use: No - Immunization History Hx Tetanus Toxoid Vaccination: No Hx Influenza Vaccination: No Hx Pneumococcal Vaccination: No Review Of Systems Constitutional: Negative for: Fever, Chills Cardiovascular: Negative for: Chest Pain Respiratory: Negative for: Shortness of Breath Gastrointestinal: Negative for: Nausea, Vomiting, Abdominal Pain Genitourinary: Positive for: Rash. Negative for: Pelvic Pain Skin: Negative for: Rash Neurological: Negative for: Weakness, Numbness Physical Exam - Physical Exam Appears: Non-toxic, No Acute Distress Skin: Normal Color, Warm, Dry Head: Atraumatic, Normacephalic Eye(s): bilateral: Normal Inspection Neck: Normal ROM, Supple Cardiovascular: Rhythm Regular Respiratory: Normal Breath Sounds Gastrointestinal/Abdominal: Soft, No Tenderness Pelvic: Other (large area or induration, tenderness to the left side of mons pubis. Non fluctuant, no drainage, erythema, No labia involvement) Extremity: Normal ROM, No Tenderness, No Swelling Neurological/Psych: Oriented x3, Normal Speech, Normal Cognition Gait: Steady ED Course And Treatment O2 Sat by Pulse Oximetry: 96 (ON RA) Pulse Ox Interpretation: Normal Progress Note: Plan: - Bactrin 1 tab PO. - Keflex 500 mg PO. - Motrin 800 mg PO. I&D is not indicated at this time, pt will follow up in 2 dsys for wound check. Return precautions were discussed. On reassessment, patient is resting comfortably, and is in no acute distress. Patient was instructed to follow up with physician/clinic in 1-2 days for further evaluation. 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 - Scribe Statement The provider has reviewed the documentation as recorded by the Scribe Rock Valenzuela All medical record entries made by the Scribe were at my direction and personally dictated by me. I have reviewed the chart and agree that the record accurately reflects my personal performance of the history, physical exam, medical decision making, and the department course for this patient. I have also personally directed, reviewed, and agree with the discharge instructions and disposition.
[2018-10-28] MEDS ORDERED: Tmp-Smz 800 mg-160 mg DS Tab PO STA (02:00)
[2018-10-28] MEDS ORDERED: Tmp-Smz 800 mg-160 mg DS Tab ONE (02:14)
== END 2018-10-28 02:19 | disposition home or self-care (01) ==
LOC: C.ER 00:59
DX: L02.215 Cutaneous abscess of perineum (principal); L03.315 Cellulitis of perineum

== ENCOUNTER 2018-11-01 23:41 | Emergency (ER) | payer SELFPAY ==
[2018-11-01 23:41] VITALS: BMI 26.2
[2018-11-02 00:03] VITALS: PULSE 85
--- NOTE | 2018-11-02 00:23 | C.PDOC ---
History Of Present Illness 28 year old female presents to the ED for evaluation of painful abscess to the pubic region. Patient was seen in the ED 2 days ago and instructed to use warm compress and take antibiotics. Patient states she managed to get some drainage 2 days ago but sicne the hole closed and area became swollen and painful. Patient denies fever, chills, nausea, vomit, injury, fall, trauma, dysuria, hematuria. Time Seen by Provider: 11/01/18 23:59 Chief Complaint (Nursing): Abnormal Skin Integrity History Per: Patient History/Exam Limitations: no limitations Onset/Duration Of Symptoms: Days Current Symptoms Are (Timing): Still Present Quality Of Symptoms: Painful, Swollen Recent travel outside of the [place]: No Additional History Per: Patient Past Medical History Reviewed: Historical Data, Nursing Documentation, Vital Signs Vital Signs: Last Vital Signs Temp 98.3 F 11/02/18 00:01 Pulse 85 11/02/18 00:01 Resp 20 11/02/18 00:01 BP 111/74 11/02/18 00:01 Pulse Ox 100 11/02/18 00:01 - Medical History PMH: Anxiety, Depression, Sexually Transmitted Disease (oral herpes) Denies: Diabetes, Hepatitis, HIV, HTN, Chronic Kidney Disease, Seizures Surgical History: No Surg Hx - [facility] Procedures INDIVIDUAL PSYCHOTHERAPY, SUPPORTIVE (04/05/17) INJECT/INFUSE ELECTROLYT (05/18/15) INJECT/INFUSE NEC (08/11/15) MEDICATION MANAGEMENT (04/05/17) Family History: States: Unknown Family Hx - Social History Hx Alcohol Use: Yes Hx Substance Use: No - Immunization History Hx Tetanus Toxoid Vaccination: No Hx Influenza Vaccination: No Hx Pneumococcal Vaccination: No Review Of Systems Constitutional: Negative for: Fever, Chills Cardiovascular: Negative for: Chest Pain Respiratory: Negative for: Cough, Shortness of Breath Gastrointestinal: Negative for: Nausea, Vomiting, Abdominal Pain Skin: Positive for: Other (abscess) Neurological: Negative for: Weakness, Numbness, Altered Mental Status Physical Exam - Physical Exam Appears: Non-toxic, No Acute Distress Skin: Normal Color, Warm, Dry Head: Atraumatic, Normacephalic Eye(s): bilateral: Normal Inspection Neck: Normal ROM, Supple Chest: Symmetrical Cardiovascular: Rhythm Regular Respiratory: Normal Breath Sounds, No Rales, No Rhonchi, No Wheezing Gastrointestinal/Abdominal: Soft, No Tenderness, No Guarding, No Rebound Pelvic: Other ((+) swelling indurated erythematous area in the pubic region. Not groin involvement. (+) skin irritation to the bilateral labia) Extremity: Normal ROM, No Tenderness, No Swelling Neurological/Psych: Oriented x3, Normal Speech, Normal Cognition Gait: Steady ED Course And Treatment O2 Sat by Pulse Oximetry: 100 (ON RA) Pulse Ox Interpretation: Normal - Incision & Drainage Of Abscess Anesthesia: Lidocaine 2% Used During Procedure: Continuous Pulse Oximetry Prep Used: Betadine Procedure: Incised W/Scalpel Blade#: (11), Drained Pus, Irrigated Cavity W/Saline, Probed To Break Up Loculations, Packed W/Gauze, Cultures Obtained And Sent To Lab Medical Decision Making Medical Decision Making: Wound culture collected. Disposition - Disposition Referrals: Rae Quispe MD [Staff Provider] - Disposition: HOME/ ROUTINE Disposition Time: 01:17 Condition: STABLE Additional Instructions: CONTINUE TAKING THE ANTIBIOTICS UNTIL COMPLETED. RETURN TO THE ED IN 2 DAYS FOR PACKING REMOVAL AND WOUND CHECK. 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 - Scribe Statement The provider has reviewed the documentation as recorded by the Scribe Rock Valenzuela All medical record entries made by the Scribe were at my direction and personall y dictated by me. I have reviewed the chart and agree that the record accurately reflects my personal performance of the history, physical exam, medical decision making, and the department course for this patient. I have also personally directed, reviewed, and agree with the discharge instructions and disposition.
[2018-11-02] MEDS ORDERED: Lidocaine Hydrochloride 5 ML INJ ONE (00:26)
[2018-11-02 02:03] VITALS: BP 120/78; RESP 14; TEMP 98.2
[2018-11-02 03:29] VITALS: O2SAT 100
== END 2018-11-02 02:03 | disposition home or self-care (01) ==
LOC: C.ER 23:41
DX: L02.219 Cutaneous abscess of trunk, unspecified (principal)

== ENCOUNTER 2018-11-05 23:47 | Emergency (ER) | payer SELFPAY ==
[2018-11-05 23:47] VITALS: BMI 26.2
[2018-11-05 23:57] VITALS: BP 113/73; PULSE 73; RESP 22; TEMP 97.7; O2SAT 100
--- NOTE | 2018-11-06 00:10 | C.PDOC ---
History Of Present Illness 28 year old female presents to the ED for wound check and packing removal. Patient was seen in the ED 3 days ago for painful abscess to the pubic region. Patient denies fever, chills, nausea, vomit, dysuria, hematuria, rash. Time Seen by Provider: 11/05/18 23:53 Chief Complaint (Nursing): Abnormal Skin Integrity History Per: Patient History/Exam Limitations: no limitations Onset/Duration Of Symptoms: Days Current Symptoms Are (Timing): Still Present Recent travel outside of the [place]: No Additional History Per: Patient Past Medical History Reviewed: Historical Data, Nursing Documentation, Vital Signs Vital Signs: Last Vital Signs Temp 97.7 F 11/05/18 23:52 Pulse 73 11/05/18 23:52 Resp 22 11/05/18 23:52 BP 113/73 11/05/18 23:52 Pulse Ox 100 11/05/18 23:52 - Medical History PMH: Anxiety, Depression, Sexually Transmitted Disease (oral herpes) Denies: Diabetes, Hepatitis, HIV, HTN, Chronic Kidney Disease, Seizures Surgical History: No Surg Hx - [facility] Procedures INDIVIDUAL PSYCHOTHERAPY, SUPPORTIVE (04/05/17) INJECT/INFUSE ELECTROLYT (05/18/15) INJECT/INFUSE NEC (08/11/15) MEDICATION MANAGEMENT (04/05/17) Family History: States: Unknown Family Hx - Social History Hx Alcohol Use: Yes Hx Substance Use: No - Immunization History Hx Tetanus Toxoid Vaccination: No Hx Influenza Vaccination: No Hx Pneumococcal Vaccination: No Review Of Systems Constitutional: Negative for: Fever, Chills Cardiovascular: Negative for: Chest Pain Respiratory: Negative for: Shortness of Breath Gastrointestinal: Negative for: Nausea, Vomiting, Abdominal Pain Genitourinary: Positive for: Other Skin: Positive for: Other (wound ) Neurological: Negative for: Weakness, Numbness Physical Exam - Physical Exam Appears: Non-toxic, No Acute Distress Skin: Normal Color, Warm, Dry Head: Atraumatic, Normacephalic Eye(s): bilateral: Normal Inspection Oral Mucosa: Moist Neck: Normal ROM, Supple Chest: Symmetrical Cardiovascular: Rhythm Regular Respiratory: Normal Breath Sounds, No Rales, No Rhonchi, No Wheezing Gastrointestinal/Abdominal: Soft, No Tenderness, No Guarding, No Rebound Pelvic: Other (pubic area clean, dry and healing wound. No drainage, erythema) Extremity: Normal ROM, No Tenderness, No Swelling Neurological/Psych: Oriented x3, Normal Speech, Normal Cognition Gait: Steady ED Course And Treatment O2 Sat by Pulse Oximetry: 100 (ON RA) Pulse Ox Interpretation: Normal Medical Decision Making Medical Decision Making: Packing removed by me and sterile dressing applied. Disposition - Disposition Referrals: [facility] [Outside] Disposition: HOME/ ROUTINE Disposition Time: 00:30 Condition: GOOD Additional Instructions: Continue applying the wet compresses three times a day. Take antibiotics until completed. Follow up with the medical clinic within 1-2 days. Return if worsened. 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 - Scribe Statement The provider has reviewed the documentation as recorded by the Scribe Rock Valenzuela All medical record entries made by the Scribe were at my direction and personally dictated by me. I have reviewed the chart and agree that the record accurately reflects my personal performance of the history, physical exam, medical decision making, and the department course for this patient. I have also personally directed, reviewed, and agree with the discharge instructions and disposition.
== END 2018-11-06 00:29 | disposition home or self-care (01) ==
LOC: C.ER 23:47
DX: L02.219 Cutaneous abscess of trunk, unspecified (principal)

== ENCOUNTER 2019-01-29 21:21 | Emergency (ER) | payer SELFPAY | END 2019-01-29 23:57 | disposition home or self-care (01) | LOC: C.ER 23:57 ==

== ENCOUNTER 2019-02-15 07:09 | Emergency (ER) | payer SELFPAY ==
[2019-02-15 07:28] VITALS: BMI 34.3
[2019-02-15 07:30] VITALS: BP 116/75; PULSE 68; TEMP 98.9; O2SAT 100
--- NOTE | 2019-02-15 07:55 | C.PDOC ---
History Of Present Illness 28-year-old female presents to the ED complaining of a sore throat for the past few days. Associated with a runny nose and pain on swallowing. Patient states she took Mucinex with minimal improvement. Otherwise she denies any fever, chills, body aches, productive cough, wheezing, SOB, or other associated complaints. She reports a +sick contact in her daughter, who was diagnosed with strep throat. Time Seen by Provider: 02/15/19 07:32 Chief Complaint (Nursing): ENT Problem History Per: Patient History/Exam Limitations: None Onset/Duration Of Symptoms: Days Current Symptoms Are (Timing): Still Present Quality (Mouth/Throat): Redness Symptoms Have Been: Continuous Severity: Moderate Past Medical History Reviewed: Historical Data, Nursing Documentation, Vital Signs Vital Signs: Last Vital Signs Temp 98.9 F 02/15/19 07:28 Pulse 68 02/15/19 07:28 Resp 16 02/15/19 07:28 BP 116/75 02/15/19 07:28 Pulse Ox 100 02/15/19 07:28 - Medical History PMH: Anxiety, Asthma, Depression, Sexually Transmitted Disease (oral herpes) Denies: Diabetes, Hepatitis, HIV, HTN, Chronic Kidney Disease, Seizures - [facility] Procedures INDIVIDUAL PSYCHOTHERAPY, SUPPORTIVE (04/05/17) INJECT/INFUSE ELECTROLYT (05/18/15) INJECT/INFUSE NEC (08/11/15) MEDICATION MANAGEMENT (04/05/17) Family History: States: Unknown Family Hx - Social History Hx Alcohol Use: Yes Hx Substance Use: No - Immunization History Hx Tetanus Toxoid Vaccination: No Hx Influenza Vaccination: No Hx Pneumococcal Vaccination: No Review Of Systems Constitutional: Negative for: Fever, Chills ENT: Positive for: Nose Discharge, Throat Pain, Other (Painful swallowing) Cardiovascular: Negative for: Chest Pain Respiratory: Negative for: Cough, Shortness of Breath Gastrointestinal: Negative for: Nausea, Vomiting Musculoskeletal: Negative for: Neck Pain Neurological: Negative for: Headache, Dizziness Physical Exam - Physical Exam Appears: Well, Non-toxic, No Acute Distress Skin: Warm, Dry Head: Atraumatic, Normacephalic Eye(s): bilateral: Normal Inspection Oral Mucosa: Moist Throat: Erythema (+ pharyngeal erythema), No Exudate Neck: Normal ROM, Supple Lymphatic: No Adenopathy (no cervical lymphadenopathy) Chest: Symmetrical Cardiovascular: Rhythm Regular, No Murmur Respiratory: Normal Breath Sounds, No Rales, No Rhonchi, No Wheezing Extremity: Bilateral: Atraumatic, Normal Color And Temperature Neurological/Psych: Oriented x3, Normal Speech Gait: Steady ED Course And Treatment O2 Sat by Pulse Oximetry: 100 (RA) Pulse Ox Interpretation: Normal Medical Decision Making Medical Decision Making: Impression: Pharyngitis Plan: - Advised patient of plan to treat empirically, she is requesting strep test - Rapid strep sent Patient remained afebrile alert and oriented with stable vital signs during ER evaluation. Throat culture sent. Will discharge patient home with prescription for Amoxicillin. Patient feels comfortable going home and will be discharged. Patient given follow up instructions. Instructed to return to ER if symptoms worsen or new symptoms arise. 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 - Scribe Statement The provider has reviewed the documentation as recorded by the Scribyves Schmidt All medical record entries made by the Rocioibyves were at my direction and personally dictated by me. I have reviewed the chart and agree that the record accurately reflects my personal performance of the history, physical exam, medical decision making, and the department course for this patient. I have also personally directed, reviewed, and agree with the discharge instructions and disposition.
[2019-02-15 08:52] VITALS: RESP 18
== END 2019-02-15 09:06 | disposition home or self-care (01) ==
LOC: C.ER 07:09
DX: J02.9 Acute pharyngitis, unspecified (principal)